=== PATIENT | male | born 1990 | race Caucasian/White ===

== ENCOUNTER 2022-01-24 22:51 | Emergency (ER) | payer MEDICAID ==
[~2022-01-24] VITALS: Ht 177.8 cm; Wt 109.1 kg
[2022-01-25 00:26] LABS: BASOPHILS % (AUTO) 0.3 % (0-1); EOSINOPHILS # (AUTO) 0.2 X10'3 (0-0.9); EOSINOPHILS % (AUTO) 3.1 % (0-6); HEMATOCRIT 44.2 % (42.0-52.0); HEMOGLOBIN 15.7 g/dl (14.0-17.9); LYMPHOCYTES % (AUTO) 39.8 % (21-51); MEAN CORPUSCULAR HGB CONC 35.4 g/dL (33.0-36.5); MEAN CORPUSCULAR VOLUME 87.5 FL (78-98); MEAN PLATELET VOLUME 7.1 FL (7.4-10.4); MONOCYTES % (AUTO) 13.3 % (2-12); NEUTROPHILS # (AUTO) 3.3 X10'3 (1.8-7.7); NEUTROPHILS % (AUTO) 43.5 % (42-75); PLATELET COUNT 313 X10'3 (140-440); RED BLOOD COUNT 5.05 X10'6 (4.70-6.10); WHITE BLOOD COUNT 7.6 X10'3 (4.5-11.0)
[2022-01-25 00:35] LABS: ALANINE AMINOTRANSFERASE 78 U/L (12-78); ALBUMIN 3.9 G/DL (3.4-5.0); ALBUMIN/GLOBULIN RATIO 0.8 (1.1-1.5); ANION GAP 6 (8-16); ASPARTATE AMINO TRANSFERASE 37 U/L (10-37); BILIRUBIN,TOTAL 0.3 MG/DL (0.1-1.0); BLOOD UREA NITROGEN 14 MG/DL (7-18); CALCIUM 9.5 MG/DL (8.5-10.1); CHLORIDE 103 MMOL/L (99-107); GLUCOSE 95 MG/DL (70-104); POTASSIUM 4.3 MMOL/L (3.5-5.1); SODIUM 138 MMOL/L (135-145); TOTAL CARBON DIOXIDE 28.8 MMOL/L (24-32); TOTAL PROTEIN 8.5 G/DL (6.4-8.2); eGFR 86 ML/MIN
[2022-01-25 00:36] LABS: ALKALINE PHOSPHATASE 25 IU/L (46-116); LIPASE 88 U/L (73-393)
[2022-01-25 02:25] LABS: CLARITY,URINE CLEAR (Clear); COLOR,URINE YELLOW (Yellow); GLUCOSE, URINE NEGATIVE (Neg); KETONES,URINE NEGATIVE (Neg); LEUKOCYTE ESTERASE ,URINE NEGATIVE (Neg); NITRITES, URINE NEGATIVE (Neg); OCCULT BLOOD,URINE NEGATIVE (Neg); PH,URINE 5.5 (4.8-8.0); PROTEIN,URINE NEGATIVE (Neg); UROBILINOGEN,URINE 0.2 E.U/dL (0.2-1.0)
[2022-01-25 02:28] LABS: UA COLLECTION TYPE CLN CATCH MIDSTREAM
[2022-01-25] MEDS ORDERED: acetaminophen 325mg tablet PO ONE (03:25)
[2022-01-25 03:30] VITALS: BP 127/74
== END 2022-01-25 03:32 | disposition home or self-care (01) ==
LOC: ER 22:52
DX: R10.9 Unspecified abdominal pain (principal); R53.83 Other fatigue; R53.1 Weakness; F12.10 Cannabis abuse, uncomplicated; F11.10 Opioid abuse, uncomplicated; Z79.899 Other long term (current) drug therapy
CPT/HCPCS: 36415; 80053; 81003; 83690; 85025; 99285

== ENCOUNTER 2022-01-28 16:43 | Emergency (ER) | payer MEDICAID ==
[~2022-01-28] VITALS: Ht 177.8 cm; Wt 240.0 kg
[2022-01-28 17:24] VITALS: BP 142/90
== END 2022-01-28 20:17 | disposition left against medical advice (07) ==
LOC: ER 16:44
DX: R53.1 Weakness (principal); Z53.21 Procedure and treatment not carried out due to patient leaving prior to being seen by health care provider

== ENCOUNTER 2023-04-23 18:41 | Emergency (ER) | payer MEDICAID, OTHER ==
[~2023-04-23] VITALS: Ht 175.3 cm; Wt 109.1 kg
[2023-04-23] MEDS ORDERED: TETanus/Pertussis (Acell)/Diphther VAC/PF (Tdap-Adult) 0.5ml syringe IMVAC ONE (19:10)
[2023-04-23] MEDS ORDERED: LIDOcaine 1%/PF 5ML 10 MG/ML VIAL IM ONE (19:10)
[2023-04-23 20:23] VITALS: BP 133/79; PULSE 88; RESP 16; TEMP 98.9; O2SAT 98
== END 2023-04-23 20:24 | disposition home or self-care (01) ==
LOC: ER 18:42
DX: S61.210A Laceration without foreign body of right index finger without damage to nail, initial encounter (principal); X58.XXXA Exposure to other specified factors, initial encounter; Y93.89 Activity, other specified; Y92.89 Other specified places as the place of occurrence of the external cause; Y99.8 Other external cause status
CPT/HCPCS: 12002; 90471; 90715; 99283; J7030; A6258; A6449

== ENCOUNTER 2023-12-01 13:27 | Emergency (ER) | payer MEDICAID, OTHER ==
[~2023-12-01] VITALS: Ht 175.3 cm; Wt 109.1 kg
[2023-12-01] MEDS ORDERED: CEPH-585 PO (14:42)
[2023-12-01] MEDS ORDERED: SULF1TAB48 PO (14:42)
[2023-12-01] MEDS ORDERED: HYDR-3973 PO (14:42)
[2023-12-01] MEDS: TETanus/Pertussis (Acell)/Diphther VAC/PF (Tdap-Adult) 0.5ml syringe IMVAC ONE (14:51)
[2023-12-01 14:59] VITALS: BP 134/80; PULSE 78; RESP 16; TEMP 98.5; O2SAT 97
== END 2023-12-01 15:03 | disposition home or self-care (01) ==
LOC: ER 13:27
DX: T21.32XA Burn of third degree of abdominal wall, initial encounter (principal); T23.101A Burn of first degree of right hand, unspecified site, initial encounter; X12.XXXA Contact with other hot fluids, initial encounter; Y93.89 Activity, other specified; Y92.89 Other specified places as the place of occurrence of the external cause; Y99.8 Other external cause status
CPT/HCPCS: 99283